=== PATIENT | male | born 1950 | race African-American/Black ===

== ENCOUNTER → 2016-09-22 | Outpatient (CLI) | payer OTHER ==
[2015-03-04 10:30] VITALS: BP 146/67
[~2016-09-22] MED LIST: ARIP30TA PO; ATOR10TA60 PO; CARV3.12 PO; DIVA500T17 PO; DOCU100C5 PO; FENT1PAT15 TP; GABA600T2 PO; GLIP10TA13 PO; HYDR25TA9 PO; LEVO75TA5 PO; LISI40TA PO; MAGN296S PO; OMEP20CA9 PO; OXYC-323 PO; SENN8.6T99 PO; TRAM50TA PO
--- NOTE | 2016-09-23 14:20 | PAIN ---
DATE OF SERVICE: 09/22/2016 PROGRESS NOTE FOR PAIN CLINIC DIAGNOSES: Lumbar radiculopathy with lumbar herniated disk and lumbar degenerative disk disease. HISTORY OF PRESENT ILLNESS: The patient is a 66-year-old male who returns for followup status post lumbar epidural steroid injection x 2, last seen on 07/16/2016. The patient reports he did well initially with this with about 75% improvement, but after the last injection it was only about 50% improvement. The patient reports still significant pain in the low back, bilateral lower extremities, somewhat worse on the right than the left, but present in both of the lower extremities. The patient reports it as 6-10 on a scale of 10 with walking, standing, also reports some difficulty with urination and starting his stream and also some urgency, but he feels that he ____ empty his bladder, but no actual incontinence. The patient reports he has pain and ache in the low back, bilateral lower extremities, again worse on the right side, mostly in the posterior lateral aspect of the thigh, over the knee on the right side into the medial lower leg and some on the anterior thigh on the left side as well. The patient reports no new motor or sensory deficits, no new bowel or bladder incontinence or other complaints. PHYSICAL EXAMINATION: VITAL SIGNS: The patient's blood pressure 144/75, pulse 87, respirations 18, temperature 97.6 degrees Fahrenheit, and weight is 187 pounds. GENERAL: The patient is awake, alert, oriented, appropriate, very pleasant demeanor. HEENT: Head shows normocephalic, atraumatic. Extraocular movements are intact and symmetrical. Oral cavity shows mucous membranes moist and pink. The patient is wearing eyeglasses. NECK: Shows anterior throat supple without palpable lymphadenopathy noted. Swallow reflex is symmetrical. Neck shows full rotational motion of the cervical spine without difficulty or tenderness. CHEST: Shows normal on inspection. Breath sounds are clear to auscultation bilaterally. HEART: Shows S1 and S2 clear. ABDOMEN: Obese, soft, nontender, and nondistended. No palpable organomegaly is noted. No rebound or guarding demonstrated. BACK: Shows spine grossly in the midline. Normal appearing thoracic kyphosis and some mild flattening of lumbar lordotic curvature, but only mildly so. Lumbar paraspinous muscle shows some mild tenderness to palpation in the middle and lower distribution of paraspinous muscles, but is symmetric without evidence of atrophy, hypertrophy, normal muscle girth with palpation. No radiation of pain, no tenderness over the spinous processes, sacrum or sacroiliac regions. The patient shows good rotation and motion of the lumbar spine, both laterally greater than 10 degrees right and left as well as extension greater than 10 degrees, forward flexion 45 degrees without significant pain reported. Lower extremities show deep tendon reflexes at 1+ in the patellar and tendo calcaneus tendons are symmetrical. Motor exam is approximately 4 on a scale of 5, but symmetrical and equal with dorsiflexion, extension, quadriceps and hamstring flexion and are equal bilaterally. Peripheral pulses are 1+ posterior tibial and dorsalis pedis pulses. No peripheral edema is noted. No clubbing, no cyanosis of the lower extremities. PLAN: Options were discussed with the patient and the patient's old chart was reviewed as his current medication regimen and updated. Current review of systems updated today as well. We will plan on a third lumbar epidural steroid injection as he did well with the first 2, but would like to wait for different day when his may accompanied him and would like to reschedule for this coming week. The patient will come back as scheduled in approximately one week and we will plan on third lumbar epidural steroid injection at that time. PEARL JONES MD DR: OPAL/good JOB#: [id number] / [id number]
== END | disposition home or self-care (01) ==
LOC: PNCL 12:47
PROVIDERS: ATTEND Anesthesiology
DX: M54.16 Radiculopathy, lumbar region (principal); M51.26 Other intervertebral disc displacement, lumbar region; M51.36 Other intervertebral disc degeneration, lumbar region
CPT/HCPCS: 99212

== ENCOUNTER → 2016-09-29 | Outpatient (CLI) | payer OTHER ==
[2015-03-04 10:30] VITALS: BP 146/67
[~2016-09-29] MED LIST changes: +IOHEXOL 180 MG/ML 10 ML VIAL. ONE; +methylPREDNISolone ACETATE 40 MG/ML VIAL. ONE; +methylPREDNISolone ACETATE 80 MG/ML VIAL. ONE
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
== END | disposition home or self-care (01) ==
LOC: PNCL 10:09
PROVIDERS: ATTEND Anesthesiology
DX: M51.16 Intervertebral disc disorders with radiculopathy, lumbar region (principal)
CPT/HCPCS: 62323; J1030; J1040

== ENCOUNTER → 2017-03-04 | Outpatient (CLI) | payer OTHER ==
[2015-03-04 10:30] VITALS: BP 146/67
[~2017-03-04] MED LIST changes: -ARIP30TA PO; +ARIP30TA4 PO; +DOCU100C28 PO; -DOCU100C5 PO; -IOHEXOL 180 MG/ML 10 ML VIAL. ONE; -MAGN296S PO; +MAGN296S9 PO; -methylPREDNISolone ACETATE 40 MG/ML VIAL. ONE; -methylPREDNISolone ACETATE 80 MG/ML VIAL. ONE
== END | disposition home or self-care (01) ==
LOC: PNCL 09:11
PROVIDERS: ATTEND Anesthesiology
DX: M51.37 Other intervertebral disc degeneration, lumbosacral region (principal)
CPT/HCPCS: 99212